=== PATIENT | male | born 1945 | race Asian ===

== ENCOUNTER 2019-01-01 09:03 | Day surgery (SDC) | payer OTHER ==
[2018-12-27 14:36] VITALS: BMI 20.7
[2019-01-01] MEDS ORDERED: LIDOCAINE HCL/PF 2% SDV 5ML VIAL ONE (09:18)
[2019-01-01] MEDS ORDERED: PROPOFOL 20 ML ONE ×2 (09:18)
[2019-01-01 09:58] VITALS: TEMP 97.9
[2019-01-01 10:29] VITALS: BP 132/68; PULSE 72
--- NOTE | 2019-01-03 18:21 | PATH ---
Surgical Pathology Report Patient Name: KRISTIAN AREVALO [facility]. Rec. #: [id number] /Age/Gender: 1945 (Age: 73) / M Account: [id number] Location: [facility] Taken: 01/01/2019 Received: 01/01/2019 Reported: 01/03/2019 Physicians: Trent Carbajal M.D. Specimen(s) Received A: SECOND PORTION DUODENUM B: ANTRUM Clinical History Gastritis Postoperative diagnosis: Gastritis Final Diagnosis A. DUODENUM, SECOND PORTION, BIOPSY: DUODENAL MUCOSA WITHOUT SIGNIFICANT PATHOLOGIC FINDINGS. B. 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 NO DYSPLASIA IDENTIFIED. IMMUNOHISTOCHEMICAL STAIN FOR H. PYLORI IS NEGATIVE. Electronically Signed Charu Bob M.D. Gross Description A. Received in formalin, labeled "second portion duodenum" are 3 ogden, irregular portions of soft tissue measuring 0.2 and 0.4 cm. in greatest dimension. The specimens are submitted in toto in one cassette. B. Received in formalin, labeled "gastric antrum" are 2 ogden, irregular portions of soft tissue measuring 0.3 and 0.4 cm. in greatest dimension. The specimens are submitted in toto in one cassette. MLSZ/01/03/2019 daquan/01/03/2019
== END 2019-01-01 10:30 | disposition home or self-care (01) ==
LOC: FASU-ENDO 09:03
PROVIDERS: ATTEND Internal Medicine Gastroenterology
PROC: 0DB68ZX Excision of Stomach, Via Natural or Artificial Opening Endoscopic, Diagnostic (ICD-10-PCS; 2019-01-01)
PROC: 0DB98ZX Excision of Duodenum, Via Natural or Artificial Opening Endoscopic, Diagnostic (ICD-10-PCS; principal; 2019-01-01 09:40)
DX: K31.89 Other diseases of stomach and duodenum (principal); K29.50 Unspecified chronic gastritis without bleeding; R12 Heartburn
CPT/HCPCS: 88305-TC; 88342-TC